=== PATIENT | male | born 1955 | race Caucasian/White ===

== ENCOUNTER 2016-10-26 15:35 | Emergency (ER) | payer OTHER ==
[2016-10-26] MEDS ORDERED: Albuterol/Ipratropium 3.0-0.5 MG/3 ML Neb Soln NEB ONE (16:10)
[2016-10-26] MEDS ORDERED: Ibuprofen 600 MG Tab PO ONE (16:11)
--- NOTE | 2016-10-26 16:18 | EDM.PDOC ---
ED HISTORY OF PRESENT ILLNESS - General Chief Complaint: Respiratory Problem Stated Complaint: FEVER Time Seen by Provider: 10/26/16 16:01 Source of Information: Reports: Patient History Limitations: Reports: No limitations - History of Present Illness INITIAL COMMENTS - FREE TEXT/NARRATIVE: The patient presents with cough and fever that started yesterday. He has a history of pneumonia and it seems like every year he will get it. He does not smoke and he has no asthma or COPD. He has a scratchy throat and some ear pressure. He has no chest pain or shortness of breath. He had no appetite today but he has no abdominal pain, nausea or vomiting. His granddaughter was sick recently. Timing/Duration: Reports: Day(s): (today) Severity: moderate Improves with: Reports: None Worsens with: Reports: None Associated Symptoms (General): Reports: cough, cough w sputum, fever/chills. Denies: nausea/vomiting, shortness of breath - Related Data Allergies/ADRs: Allergies Allergy/AdvReac Type Severity Reaction Status Date / Time No Known Allergies Allergy Verified 10/26/16 15:58 Home Meds: Home Meds Acetaminophen/HYDROcodone [Boyle 325-5 MG] 1 tab PO Q6H PRN #20 tab 05/07/14 [Rx ] Allopurinol [Zyloprim] 100 mg PO DAILY 05/07/14 [History] Aspirin [Halfprin] 81 mg PO DAILY 05/07/14 [History] Atenolol 100 mg PO DAILY 05/07/14 [History] Lisinopril 10 mg PO DAILY 05/07/14 [History] Niacin [Slo-Niacin] 500 mg PO DAILY 05/07/14 [History] Rosuvastatin [Crestor] 10 mg PO DAILY 05/07/14 [History] amLODIPine Besylate [Amlodipine Besylate] 5 mg PO DAILY 05/07/14 [History] Albuterol [IJP: Ventolin HFA] 2 puff INH Q6HR PRN #18 gm 10/26/16 [Rx] Azithromycin [Zithromax] 250 mg PO DAILY #6 tablet 10/26/16 [Rx] Oseltamivir [Tamiflu] 75 mg PO BID #10 cap 10/26/16 [Rx] Social & Family History - Tobacco Use Smoking Status *Q: Never Smoker - Alcohol Use Days Per Week of Alcohol Use: 1 Number of Drinks Per Day: 2 Total Drinks Per Week: 2 - Recreational Drug Use Recreational Drug Use: No ED ROS GENERAL - Review of Systems Review Of Systems: See Below Constitutional: Reports: fever, chills HEENT: Reports: No symptoms Respiratory: Reports: cough Cardiovascular: Reports: No symptoms Endocrine: Reports: no symptoms GI/Abdominal: Reports: No symptoms : Reports: no symptoms Musculoskeletal: Reports: no symptoms Skin: Reports: no symptoms ED EXAM, GENERAL - Physical Exam Exam: See Below Exam Limited By: No limitations General Appearance: alert, no apparent distress Ears: normal external exam Nose: normal inspection Head: atraumatic, normocephalic Neck: normal inspection Respiratory/Chest: no respiratory distress, normal breath sounds, rhonchi ( Right upper lung), wheezing (mild) Cardiovascular: regular rate, rhythm, no edema, no murmur GI/Abdominal: soft, non tender, no organomegaly, no mass Back Exam: normal inspection Extremities: normal inspection Course - Vital Signs Last Recorded V/S: Last Vital Signs Temp 100.3 F 10/26/16 16:34 Pulse 81 10/26/16 16:05 Resp 18 10/26/16 16:05 BP 167/75 H 10/26/16 16:05 Pulse Ox 91 L 10/26/16 16:20 - Orders/Labs/Meds Orders: Active Orders 24 hr Category Date Time Status Cardiac Monitoring [RC] . DIRECTED Care 10/26/16 16:10 Active RT Aerosol Therapy [RC] ASDIRECTED Care 10/26/16 16:10 Active CXR [Chest 2V] [CR] Stat Exams 10/26/16 16:10 Taken Labs: Laboratory Tests 10/26/16 10/26/16 Range/Units 16:29 16:29 WBC 8.87 (4.23-9.07) K/mm3 RBC 4.51 L (4.63-6.08) M/mm3 Hgb 13.9 (13.7-17.5) gm/L Hct 41.5 (40.1-51.0) % MCV 92.0 (79.0-92.2) fl MCH 30.8 (25.7-32.2) pg MCHC 33.5 (32.2-35.5) g/dl RDW Std Deviation 45.3 H (35.1-43.9) fL Plt Count 120 L (163-337) K/mm3 MPV 11.6 (9.4-12.3) fl Neut % (Auto) 72.6 H (34.0-67.9) % Lymph % (Auto) 15.3 L (21.8-53.1) % [place] % (Auto) 10.9 (5.3-12.2) % Eos % (Auto) 1.0 (0.8-7.0) Baso % (Auto) 0.1 (0.1-1.2) % Neut # 6.43 H (1.78-5.38) K/mm3 Lymph # 1.36 (1.32-3.57) K/mm3 [place] # 0.97 H (0.30-0.82) K/mm3 Eos # 0.09 (0.04-0.54) K/mm3 Baso # 0.01 (0.01-0.08) K/mm3 Sodium 140 (136-145) mEq/L Potassium 5.0 (3.5-5.1) mEq/L Chloride 104 (98-107) mEq/L Carbon Dioxide 26 (21-32) mEq/L Anion Gap 15.0 (5-15) BUN 28 H (7-18) mg/dL Creatinine 2.0 H (0.7-1.3) mg/dL Est Cr Clr Drug Dosing 35.80 mL/min Estimated GFR (MDRD) 34 (>60) mL/min BUN/Creatinine Ratio 14.0 (14-18) Glucose 157 H (80-115) mg/dL Calcium 8.8 (8.5-10.1) mg/dL Total Bilirubin 0.3 (0.2-1.0) mg/dL AST 20 (15-37) U/L ALT 30 (16-63) U/L Alkaline Phosphatase 47 (46-116) U/L Total Protein 6.8 (6.4-8.2) g/dl Albumin 3.4 (3.4-5.0) g/dl Globulin 3.4 gm/dL Albumin/Globulin Ratio 1.0 (1-2) Meds: Medications Discontinued Medications Generic Name Dose Route Start Last Admin Trade Name Freq PRN Reason Stop Dose Admin Albuterol/Ipratropium 3 ml 10/26/16 16:10 10/26/16 16:20 Duoneb 3.0-0.5 Mg/3 Ml NEB 10/26/16 16:11 3 ml ONETIME ONE Administration Ibuprofen 600 mg 10/26/16 16:11 10/26/16 16:34 Motrin PO 10/26/16 16:12 600 mg ONETIME ONE Administration - Re-Assessments/Exams Free Text/Narrative Re-Assessment/Exam: 10/26/16 16:19 I ordered a duoneb, motrin, labs, CXR and influenza. 10/26/16 17:14 His CBC looks good. His CMP shows an elevated creatinine of 2. He has a history of that. His CXR shows no infiltrate. His influenza was positive for inlfuenza A. I will get him on some tamiflu and he says he gets pneumonia very easy. I will also give him zithromax and an inhaler. Departure - Departure Time of Disposition: 17:20 Disposition: Home, Self-Care 01 Condition: good Clinical Impression: Influenza A, Renal insufficiency Prescriptions: Albuterol [IJP: Ventolin HFA] 2 puff INH Q6HR PRN #18 gm PRN Reason: Shortness Of Breath Azithromycin [Zithromax] 250 mg PO DAILY #6 tablet Oseltamivir [Tamiflu] 75 mg PO BID #10 cap Referrals: Ale Wheat PA-C [Primary Care Provider] - 1 Week Forms: ED Department Discharge Additional Instructions: Take the tamiflu 2 times per day for 5 days. Use the albtuerol inhaler 2 puffs every 6 hours as needed for shortness of breath. Take the zithromax 2 pills on day 1 and 1 pill on day 2 through 5. Please return if you are worse. - My Orders Last 24 Hours: My Active Orders 10/26/16 16:10 Cardiac Monitoring [RC] . DIRECTED RT Aerosol Therapy [RC] ASDIRECTED CXR [Chest 2V] [CR] Stat - Assessment/Plan Last 24 Hours: My Active Orders 10/26/16 16:10 Cardiac Monitoring [RC] . DIRECTED RT Aerosol Therapy [RC] ASDIRECTED CXR [Chest 2V] [CR] Stat
[2016-10-26 17:45] VITALS: BP 144/81
--- NOTE | 2016-10-28 07:37 | CR ---
Chest: Two views of the chest were obtained. Comparison: Previous chest x-ray of 05/07/14. Increased central lung markings are seen from prior exam compatible with diffuse bronchitis. No alveolar densities of pneumonia are seen. Bony structures are unremarkable for the patient's age. Incidental note of old chronic left acromioclavicular separation. Heart size and mediastinum are normal. Impression: 1. Increased central lung markings most likely representing bronchitis. 2. Other incidental findings. Diagnostic code #3
== END 2016-10-26 17:35 | disposition home or self-care (01) ==
LOC: JD.ED 15:35
DX: J10.1 Influenza due to other identified influenza virus with other respiratory manifestations (principal); N28.9 Disorder of kidney and ureter, unspecified; Z79.82 Long term (current) use of aspirin; Z79.899 Other long term (current) drug therapy; Z79.2 Long term (current) use of antibiotics
CPT/HCPCS: 36415; 71020; 80053; 85025; 87804; 94664; 99284; A9270

== ENCOUNTER 2021-05-31 10:19 | Day surgery (SDC) | payer BC ==
[~2021-05-31 10:19] MED LIST: Lactated Ringers 1,000 ML IV SCH; Lidocaine 1%/Sod Bicarbonate in NS 8.4% 1 ML Syringe IDERM PRN; Sodium Chloride 0.9% 10 ML Syringe FLUSH PRN
[2021-05-31] MEDS ORDERED: FLU Vacc QS2021(65UP)/MF59C/PF 60 MCG/0.5 ML Syringe IM ONE (10:30)
--- NOTE | 2021-05-31 11:16 | PCM.PREANE ---
Preanesthetic Assessment - Procedure Proposed Procedure: Colonoscopy - Anesthesia/Transfusion/Family Hx Anesthesia History: Prior Anesthesia Reaction Type of Anesthesia Reaction: Excessive Nausea/Vomiting Family History of Anesthesia Reaction: No Transfusion History: No Prior Transfusion(s) Intubation History: Unknown - Review of Systems General: No Symptoms Pulmonary: No Symptoms Cardiovascular: No Symptoms Gastrointestinal: Diarrhea (Prep- induced) Neurological: No Symptoms Other: Reports: Easy Bleeding, Diabetes - Physical Assessment NPO Status Date: 05/30/21 NPO Status Time: 20:30 Vital Signs: 149/78 HR 16 98% sat RA 97.6 HR 64 Height: 1.7 m Weight: 92.8 kg ASA Class: 2 Mental Status: Alert & Oriented x3 Airway Class: Mallampati = 2 Dentition: Reports: Caries Thyro-Mental Finger Breadths: 2 Mouth Opening Finger Breadths: 2 ROM/Head Extension: Full Lungs: Clear to Auscultation, Normal Respiratory Effort Cardiovascular: Regular Rate (Hx of murmur, very mild murmur noted), Regular Rhythm - Imaging/EKG Impressions: Carotid ultrasound 06/05/2018: small amount of plaque, tortuous left internal carotid artery, mild intimal thickening within both common carotid arteries. Velocity measurements correspond to stenosis at the lower range of 1-49% within both internal carotid arteries TTE echo: EF 60-65%, normal EKG NSR HR 64 - Allergies Allergies/Adverse Reactions: Allergies Allergy/AdvReac Type Severity Reaction Status Date / Time No Known Allergies Allergy Verified 05/30/21 15:36 - Blood Blood Available: No Product(s) Available: None - Anesthesia Plan Beta Myke: Metoprolol Med Last Dose Date: 05/31/21 Med Last Dose Time: 07:00 - Acknowledgements Anesthesia Type Planned: MAC Pt an Appropriate Candidate for the Planned Anesthesia: Yes Alternatives and Risks of Anesthesia Discussed w Pt/Guardian: Yes Pt/Guardian Understands and Agrees with Anesthesia Plan: Yes PreAnesthesia Questionnaire HEENT History: Reports: Cataract, Impaired Vision Cardiovascular History: Reports: High Cholesterol, Hypertension, Other (See Below) Other Cardiovascular History: left carotid bruit, murmur, hx DVT (90's and john on anticoagulants for a few months) Respiratory History: Reports: Pneumonia, Recurrent, Sleep Apnea Gastrointestinal History: Reports: None Genitourinary History: Reports: Other (See Below) Other Genitourinary History: CKD III ABA THERAPIST History: Reports: None Musculoskeletal History: Reports: Gout Neurological History: Reports: Vertigo Psychiatric History: Reports: None Endocrine/Metabolic History: Reports: Diabetes, Type II Hematologic History: Reports: Other (See Below) Other Hematologic History: blood clotting disorder, elevated potassium Immunologic History: Reports: None Oncologic (Cancer) History: Reports: None Dermatologic History: Reports: Other (See Below) Other Dermatologic History: lentiginous nevus to scalp, skin tags - Infectious Disease History Infectious Disease History: Reports: None - Past Surgical History Head Surgeries/Procedures: Reports: None HEENT Surgical History: Reports: Cataract Surgery, Eye Surgery, Tonsillectomy Cardiovascular Surgical History: Reports: None Respiratory Surgical History: Reports: None GI Surgical History: Reports: None Female Surgical History: Reports: None Male Surgical History: Reports: None Endocrine Surgical History: Reports: None Neurological Surgical History: Reports: None Musculoskeletal Surgical History: Reports: None Oncologic Surgical History: Reports: None Dermatological Surgical History: Reports: None - SUBSTANCE USE Tobacco Use Status *Q: Former Tobacco User (quit 20 years ago) Tobacco Use Within Last Twelve Months: No Second Hand Smoke Exposure: Yes Days Per Week of Alcohol Use: 0 Number of Drinks Per Day: 0 Total Drinks Per Week: 0 Recreational Drug Use History: No - HOME MEDS Home Medications: Home Meds Aspirin 81 mg PO DAILY 05/30/21 [History] Chlorthalidone 25 mg PO DAILY 05/30/21 [History] Cholecalciferol (Vitamin D3) [Vitamin D3] 1,000 unit PO DAILY 05/30/21 [History] Cider Vinegar [Apple Cider Vinegar] 1,000 mg PO DAILY 05/30/21 [History] Cinnamon Bark [Cinnamon] 1,000 mg PO BID 05/30/21 [History] Fish Oil/[place]-3 Fatty Acids [Fish Oil 1,000 MG] 2 gm PO DAILY 05/30/21 [History] Insulin Aspart [NovoLOG] 1 dose SQ TID 05/30/21 [History] Insulin Glargine,Hum.Rec.Anlog [Toujeo Solostar] 88 units SQ DAILY 05/30/21 [History] Metoprolol Tartrate 100 mg PO BID 05/30/21 [History] Multivitamin 1 tab PO DAILY 05/30/21 [History] Rosuvastatin [Crestor] 20 mg PO DAILY 05/30/21 [History] Semaglutide [Ozempic] 1 mg SQ Q7D 05/30/21 [History] allopurinoL [Zyloprim] 300 mg PO DAILY 05/30/21 [History] amLODIPine Besylate [Norvasc] 10 mg PO DAILY 05/30/21 [History] lisinopriL [Lisinopril] 15 mg PO DAILY 05/30/21 [History] - CURRENT (IN HOUSE) MEDS Current Meds: Current Medications Lactated Ringer's (Ringers, Lactated) 1,000 mls @ 125 mls/hr IV ASDIRECTED LEDA Stop: 05/31/21 23:00 Lidocaine/Sodium Bicarbonate (Lidocaine 1%/Sod Bicarbonate In Ns 8.4% 1 Ml Syringe) 0.25 ml IDERM ONETIME PRN PRN Reason: Prior to IV Start Stop: 05/31/21 18:00 Sodium Chloride (Sodium Chloride 0.9% 10 Ml Syringe) 10 ml FLUSH ASDIRECTED PRN PRN Reason: Keep Vein Open Stop: 05/31/21 18:00 Discontinued Medications Influenza Virus Vaccine (Pharmacy To Dose - Influenza Vaccine) 1 each IM ONETIME LEDA Stop: 05/31/21 10:30 Influenza Virus Vaccine (Flu Vacc [id number])/Mf59c/Pf 60 Mcg/0.5 Ml Syringe) 60 mcg IM .ONCE ONE Stop: 05/31/21 10:31
[2021-05-31] MEDS ORDERED: fentaNYL 100 MCG/2 ML SDV ONE (11:33)
[2021-05-31] MEDS ORDERED: Propofol 200 MG/20 ML SDV ONE ×2 (11:33→12:40)
[2021-05-31] MEDS ORDERED: Lidocaine 1% 4 ML ONE (11:35)
--- NOTE | 2021-05-31 13:12 | PCM.PRNOTE ---
- Free Text/Narrative Note: Date: 05/31/2021 Procedure: screening colonoscopy History: no prior screening, mother was diagnosed with colon cancer in her old age Endoscopist: Orestes Blackburn MD Findings: unsatisfactory prep. Cecum reached. One miniscule polyp in sigmoid and one larger ~1 cm pedunculated polyp distal to the first polyp within the sigmoid. Detailed Report: The patient was taken to the endoscopy suite and placed in left lateral decubitus position. Timeout was performed and monitored anesthesia care was initiated. Visual inspection of the anus revealed no abnormality. Digital rectal exam was unremarkable. The colonoscope was inserted and advanced to the cecum. Bowel prep was poor and there was murky fluid containing particulate matter throughout the colon, and large volume. The cecum was reached and the appendiceal orifice was visualized. The scope was slowly withdrawn and mucosal surfaces carefully inspected. No polyps were identified until the sigmoid colon, although as mentioned previously the prep was not satisfactory. A small sessile polyp less than 1 cm was identified in the mid sigmoid and was removed using jumbo forceps. Hemostasis was achieved with directed electrocautery. Distal to this but still within the sigmoid colon, a larger, approximately 1 cm, pedunculated polyp was identified. This was removed in its entirety with hot snare polypectomy technique. No other pathology was noted. Air was suctioned from the distal colon and rectum prior to withdrawal of the scope. The patient tolerated the procedure well.
--- NOTE | 2021-05-31 13:14 | PCM48HPAN ---
Post Anesthesia Note - EVALUATION WITHIN 48HRS OF ANESTHETIC Vital Signs in Normal Range: Yes Patient Participated in Evaluation: Yes Respiratory Function Stable: Yes Airway Patent: Yes Cardiovascular Function Stable: Yes Hydration Status Stable: Yes Pain Control Satisfactory: Yes Nausea and Vomiting Control Satisfactory: Yes Mental Status Recovered: Yes
[2021-05-31 14:27] VITALS: BP 133/74; PULSE 61
== END 2021-05-31 13:40 | disposition home or self-care (01) ==
LOC: JD.SDS 10:19
PROVIDERS: ATTEND Surgery
DX: Z12.11 Encounter for screening for malignant neoplasm of colon (principal); D12.5 Benign neoplasm of sigmoid colon; G47.33 Obstructive sleep apnea (adult) (pediatric); E78.5 Hyperlipidemia, unspecified; Z80.0 Family history of malignant neoplasm of digestive organs; E78.00 Pure hypercholesterolemia, unspecified; E11.22 Type 2 diabetes mellitus with diabetic chronic kidney disease; I12.9 Hypertensive chronic kidney disease with stage 1 through stage 4 chronic kidney disease, or unspecified chronic kidney disease; N18.9 Chronic kidney disease, unspecified
CPT/HCPCS: 45380; 45385; 88305; 90471; 90694; J2704; J3010; J7120; 00812; G0008